=== PATIENT | female | born 1970 | race Caucasian/White ===

== ENCOUNTER 2017-01-05 15:23 | Emergency (ER) | payer SELFPAY ==
[2017-01-05] MEDS ORDERED: Cyclobenzaprine TAB* 10 MG PO ONE (18:08)
--- NOTE | 2017-01-05 18:42 | UC ---
Back Pain HPI - HPI Summary HPI Summary: SUDDEN ONSET OF RIGHT LOWER BACK MUSCLE SPASM 2 DAYS AGO. GETTING WORSE. 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 NO ACUTE INJURY. OTC IBUPROFEN AND NAPROXEN NOT HELPFUL. HAS HAD LOW BACK SPASM IN THE PAST BUT NEVER THIS BAD AND NOT IN THE LAST 5 YEARS. DENIES NUMBNESS, TINGLING. NO SADDLE ANESTHESIA. - History of Current Complaint Chief Complaint: UCGeneralIllness Stated Complaint: MUSCLE SPASM Time Seen by Provider: 01/05/17 15:59 Hx Obtained From: Patient Hx Last Menstrual Period: now Onset/Duration: Sudden Onset, Lasting Days, Still Present Timing: Constant Severity Initially: Moderate Severity Currently: Moderate Pain Intensity: 10 - 10/10 WHEN SHE MOVES Pain Scale Used: 0-10 Numeric Back Pain: Is Discrete @ - RIGHT LOW BACK Aggravating: Movement Alleviating: Rest Associated Signs And Symptoms: Negative: Swelling, Fever, Weakness, Numbness, Tingling, Abdominal Pain, Bladder Incontinence, Bowel Incontinence - Allergies/Home Medications Allergies/Adverse Reactions: Allergies Allergy/AdvReac Type Severity Reaction Status Date / Time Sulfa Drugs Allergy Intermediate Rash Verified 01/05/17 15:36 PMH/Surg Hx/FS Hx/Imm Hx Cardiovascular History Of: Reports: Hypertension - today's blood pressure is elevated, and has past elevated readings. - Surgical History Surgical History: None - Family History Known Family History: Positive: Hypertension - Social History Alcohol Use: Rare Substance Use Type: None Smoking Status (MU): Never Smoked Tobacco - Immunization History Most Recent Influenza Vaccination: 2016 Most Recent Tetanus Shot: UTD Most Recent Pneumonia Vaccination: None Review of Systems Constitutional: Negative Skin: Negative Respiratory: Negative Cardiovascular: Negative Gastrointestinal: Negative Musculoskeletal: Arthralgia, Decreased ROM, Myalgia All Other Systems Reviewed And Are Negative: Yes Physical Exam Triage Information Reviewed: Yes Appearance: Well-Appearing, Well-Nourished, Pain Distress - MODERATE Vital Signs: Initial Vital Signs Temp 98 F 01/05/17 15:38 Pulse 88 01/05/17 15:38 Resp 18 01/05/17 15:38 BP 186/129 01/05/17 15:38 Pulse Ox 98 01/05/17 15:38 Vital Signs Reviewed: Yes Eyes: Positive: Conjunctiva Clear ENT: Positive: Hearing grossly normal Neck: Positive: Supple Respiratory: Positive: No respiratory distress, No accessory muscle use Cardiovascular: Positive: Pulses Normal Abdomen Description: Positive: Soft Musculoskeletal: Positive: No Edema, ROM Limited @ - BACK, Other: - MILDLY TTP RIGHT LOW BACK Neurological: Positive: Alert Psychological: Positive: Age Appropriate Behavior Skin: Negative: rashes Diagnostics - Laboratory Diagnostic Studies Completed/Ordered: URINE DIP SP. GR. 1.015, TR BLOOD, 1+ LEUKS Back Pain Course/Dx - Differential Dx/Diagnosis Provider Diagnoses: ACUTE LOW BACK MUSCLE SPASM Discharge - Discharge Plan Condition: Stable Disposition: HOME Prescriptions: Cyclobenzaprine TAB* [Flexeril TAB*] 10 mg PO BID PRN #30 tab PRN Reason: Pain Naproxen [Naproxen EC] 500 mg PO BID PRN #30 tab PRN Reason: Pain predniSONE TAB* [Deltasone TAB*] 40 mg PO DAILY #10 tab Patient Education Materials: Low Back Strain (ED), Muscle Spasm (ED) Forms: *Work Release Referrals: Jie Alexis ORACLE ENGINEER [Primary Care Provider] - 2 Weeks Additional Instructions: BE SURE TO GO THROUGH SLOW RANGE OF MOTION AND STRETCHING EXERCISES DAILY YOU ARE ABLE TO PREVENT STIFFENING UP AND MAKING THE DISCOMFORT WORSE. REST AND USE HEAT FOR COMFORT. YOUR BP WAS ELEVATED TODAY. THIS MAY BE DUE TO YOUR CURRENT PAIN BUT NEEDS FOLLOW-UP. PLEASE SEE YOUR PCP FOR THIS WITHIN THE NEXT FEW WEEKS.
[2017-01-05 19:20] VITALS: BP 193/99
== END 2017-01-05 18:55 | disposition home or self-care (01) ==
LOC: UCEAST 15:23
DX: M62.830 Muscle spasm of back (principal); I10 Essential (primary) hypertension; Z88.2 Allergy status to sulfonamides
CPT/HCPCS: 81003; 87086; 99213; A9270-GY; G0463

== ENCOUNTER 2017-08-13 20:17 | Emergency (ER) | payer MEDICAID ==
--- NOTE | 2017-08-13 20:37 | UC ---
Complaint Female HPI - HPI Summary HPI Summary: Pt presents with c/o sudden on set of frequency, urgency and dysuria X 1 day. - History Of Current Complaint Chief Complaint: UCGU Stated Complaint: URINARY COMPLAINT Time Seen by Provider: 08/13/17 20:26 Hx Obtained From: Patient Hx Last Menstrual Period: 08/13/17 ?: No Onset/Duration: Sudden Onset, Lasting Days - 1 Timing: Constant Severity Initially: Mild Severity Currently: Mild Character: Dull, Burning Aggravating Factor(s): Urination Associated Signs And Symptoms: Positive: Negative - Risk Factors Ectopic Risk Factor: Negative - Allergies/Home Medications Allergies/Adverse Reactions: Allergies Allergy/AdvReac Type Severity Reaction Status Date / Time Sulfa Drugs Allergy Intermediate Rash Verified 08/13/17 20:24 Home Medications: Home Medications Acetaminophen TAB* [Tylenol TAB*] 650 mg PO Q4H PRN 08/13/17 [History Confirmed 08/13/17] Pumpkin Seed-Soy Germ [Azo Bladder Control/Go-Le] 1 cap PO BID PRN 08/13/17 [ History Confirmed 08/13/17] PMH/Surg Hx/FS Hx/Imm Hx Previously Healthy: Yes - Surgical History Surgical History: None - Family History Known Family History: Positive: None, Hypertension - Social History Occupation: Employed Full-time Lives: With Family Alcohol Use: None Substance Use Type: None Smoking Status (MU): Never Smoked Tobacco Have You Smoked in the Last Year: No - Immunization History Most Recent Influenza Vaccination: 2015 Most Recent Tetanus Shot: UTD Most Recent Pneumonia Vaccination: None Review of Systems Constitutional: Negative Skin: Negative Eyes: Negative ENT: Negative Respiratory: Negative Cardiovascular: Negative Gastrointestinal: Negative Genitourinary: Dysuria, Frequency, Urgency Motor: Negative Neurovascular: Negative Musculoskeletal: Negative Neurological: Negative Psychological: Negative Is Patient Immunocompromised?: No All Other Systems Reviewed And Are Negative: Yes Physical Exam Triage Information Reviewed: Yes Appearance: Well-Appearing Vital Signs: Initial Vital Signs Temp 97.6 F 08/13/17 20:25 Pulse 63 08/13/17 20:25 Resp 16 08/13/17 20:25 BP 159/98 08/13/17 20:25 Pulse Ox 98 08/13/17 20:25 Vital Signs Reviewed: Yes Eye Exam: Normal ENT Exam: Normal Dental Exam: Normal Neck exam: Normal Respiratory Exam: Normal Cardiovascular Exam: Normal Abdominal Exam: Normal Musculoskeletal Exam: Normal Neurological Exam: Normal Psychological Exam: Normal Skin Exam: Normal Complaint Female Dx - Course Course Of Treatment: I explained to the pt that because she had taken OTC Azo that we had to send her urine out for culture and treat her according to her symptoms. Pt verbalized understanding and agreed to plan of care. - Differential Dx/Diagnosis Differential Diagnosis/HQI/PQRI: Urinary Tract Infection Provider Diagnoses: UTI Discharge - Discharge Plan Condition: Stable Disposition: HOME Prescriptions: Cephalexin CAP* [Keflex 500 CAP*] 500 mg PO Q12H #10 cap Patient Education Materials: Urinary Tract Infection in Women (ED) Referrals: Jie Alexis SENIOR COMPLIANCE OFFICER [Primary Care Provider] - If Needed
[2017-08-13] MEDS ORDERED: Cephalexin CAP* 500 MG PO ONE (20:39)
[2017-08-13 20:43] VITALS: BP 159/98
== END 2017-08-13 20:47 | disposition home or self-care (01) ==
LOC: UCCORT 20:17
DX: N39.0 Urinary tract infection, site not specified (principal); Z88.2 Allergy status to sulfonamides
CPT/HCPCS: 87086; 99212; A9270-GY; G0463